=== PATIENT | female | born 1965 | race Two or more races ===

== ENCOUNTER 2021-05-19 04:55 | Inpatient (IN) | payer OTHER ==
[2021-05-15 10:33] VITALS: BMI 27.9
[~2021-05-19 04:55] MED LIST: PHENAZOPYRIDINE HCL 100 MG TABLET (FP) PO ONE
[2021-05-19] MEDS ORDERED: PHENAZOPYRIDINE HCL 100 MG TABLET (FP) ONE (06:23)
[2021-05-19] MEDS ORDERED: ceFAZolin SODIUM 1 GM VIAL ONE ×2 (06:24→16:06)
[2021-05-19] MEDS ORDERED: BUPIVACAINE LIPOSOME/PF (EXPAREL) 266 MG/20 ML VIAL ONE (07:27)
[2021-05-19] MEDS ORDERED: BUPIVACAINE HCL/PF 0.5% (5MG/ML) 10 ML VIAL ONE (07:27)
[2021-05-19] MEDS ORDERED: MIDAZOLAM HCL 2 MG/2 ML SINGLE DOSE VIAL ONE ×2 (07:28)
[2021-05-19] MEDS ORDERED: CEFAZOLIN 2 GM in DEXTROSE 5%-WATER 100 ML IVPB ONE (07:30)
[2021-05-19] MEDS ORDERED: PROPOFOL 20 ML ONE ×2 (08:15)
[2021-05-19] MEDS ORDERED: ROCURONIUM BROMIDE 50 MG/5 ML SYRINGE ONE (08:15)
[2021-05-19] MEDS ORDERED: SODIUM CHLORIDE 0.9% P/F 10 ML VIAL IJ ONE (08:26)
[2021-05-19] MEDS ORDERED: DEXAMETHASONE SOD PHOSPHATE 4 MG/1 ML VIAL ONE (08:28)
[2021-05-19] MEDS ORDERED: ceFAZolin SODIUM 1 GM VIAL IVPB ONE ×2 (08:30→16:12)
[2021-05-19] MEDS ORDERED: GLYCOPYRROLATE 0.2 MG/1 ML VIAL ONE ×2 (09:38→10:36)
[2021-05-19] MEDS ORDERED: KETOROLAC TROMETHAMINE 30 MG/1 ML VIAL ONE (10:22)
[2021-05-19] MEDS ORDERED: NEOSTIGMINE METHYLSULFATE 0.5 MG/ML - 10 ML MDV ONE (10:36)
[2021-05-19] MEDS ORDERED: PROMETHAZINE HCL 25 MG/1 ML VIAL IVPB PRN ×2 (12:10→18:11)
[2021-05-19] MEDS ORDERED: ONDANSETRON 4 MG/2 ML VIAL IVPUSH PRN ×3 (12:10→18:11)
[2021-05-19] MEDS ORDERED: DEXAMETHASONE SOD PHOSPHATE 4 MG/1 ML VIAL IVPUSH PRN (12:10)
[2021-05-19] MEDS ORDERED: HYDROmorphone *PCA* 10MG/50ML DISP.SYRIN PCA SCH (12:15)
[2021-05-19] MEDS ORDERED: DOCUSATE SODIUM 100 MG CAPSULE (FP) PO PRN (12:16)
[2021-05-19] MEDS ORDERED: BISACODYL 5 MG TABLET.DR (FP) PO PRN (12:16)
[2021-05-19] MEDS ORDERED: oxyCODONE HCL 5 MG TABLET PO PRN ×2 (12:16)
[2021-05-19] MEDS ORDERED: HYDROmorphone *PCA* 10MG/50ML DISP.SYRIN PCA ONE (14:00)
[2021-05-19] MEDS ORDERED: HYDROmorphone *PCA* 10MG/50ML DISP.SYRIN ONE (14:02)
[2021-05-19] MEDS: CEFAZOLIN 1 GM/D5W 1 GM/50 ML BAG IVPB SCH (17:08)
[2021-05-19] MEDS: LACTATED RINGERS SOLUTION 1,000 ML IV SCH ×2 (17:08→23:04)
[2021-05-19] MEDS: ACETAMINOPHEN 1000 MG/100 ML VIAL (NON FORMULARY) IVPB SCH ×2 (18:10→23:09)
[2021-05-19 20:02] LABS: HEMATOCRIT 35.1 % (32.4-45.2); HEMOGLOBIN 11.6 GM/dL (10.7-15.3); MCH 28.2 pg (25.7-33.7); MCHC 32.9 g/dl (32.0-36.0); MEAN CELL VOLUME 85.6 fl (80-96); MEAN PLT VOLUME 7.9 fl (7.5-11.1); PLATELET COUNT 229 10^3/uL (134-434); RBC 4.11 M/mm3 (3.60-5.2); RDW 13.3 % (11.6-15.6)
[2021-05-19] MEDS: IBUPROFEN 800 MG/8 ML IJ IVPB SCH (20:20)
[2021-05-19 20:31] LABS: BLOOD UREA NITROGEN 18.5 mg/dL (7-18); CALCIUM 8.7 mg/dL (8.5-10.1)
[2021-05-19 20:35] LABS: CREATININE 0.7 mg/dL (0.55-1.3)
[2021-05-20] MEDS: CEFAZOLIN 1 GM/D5W 1 GM/50 ML BAG IVPB SCH ×2 (01:03→09:28)
[2021-05-20] MEDS: IBUPROFEN 800 MG/8 ML IJ IVPB SCH ×3 (04:23→20:28)
[2021-05-20] MEDS: ACETAMINOPHEN 1000 MG/100 ML VIAL (NON FORMULARY) IVPB SCH ×3 (06:01→17:18)
[2021-05-20] MEDS ORDERED: oxyCODONE HCL 5 MG TABLET PO PRN ×4 (08:00→10:00)
[2021-05-20] MEDS: ENOXAPARIN NA (PORCINE) 40 MG/0.4 ML DISP.SYRIN SQ SCH (09:29)
[2021-05-20] MEDS: SIMETHICONE 80 MG TAB.CHEW (FP) PO PRN ×2 (09:29→18:19)
[2021-05-20] MEDS: clonazePAM 0.5 MG TABLET PO SCH (09:35)
[2021-05-20] MEDS ORDERED: PATIENT'S OWN MEDICATION (NON-FORMULARY) (Semaglutide [Rybelsus] 3 MG Tablet) PO SCH (10:00)
[2021-05-20 10:50] LABS: HEMATOCRIT 28.2 % (32.4-45.2); HEMOGLOBIN 9.6 GM/dL (10.7-15.3); MCH 29.2 pg (25.7-33.7); MEAN CELL VOLUME 85.6 fl (80-96); MEAN PLT VOLUME 8.3 fl (7.5-11.1); PLATELET COUNT 205 10^3/uL (134-434); RDW 13.5 % (11.6-15.6); WHITE BLOOD COUNT 10.3 K/mm3 (4.0-10.0)
[2021-05-20 11:09] LABS: CALCIUM 8.2 mg/dL (8.5-10.1)
[2021-05-20 11:10] LABS: BLOOD UREA NITROGEN 15.4 mg/dL (7-18)
[2021-05-20 11:13] LABS: CREATININE 0.9 mg/dL (0.55-1.3)
[2021-05-20] MEDS ORDERED: PCA PUMP KEY 1 EACH EACH ONE (11:57)
[2021-05-20] MEDS: LACTATED RINGERS SOLUTION 1,000 ML IV SCH (17:18)
[2021-05-21] MEDS: IBUPROFEN 800 MG/8 ML IJ IVPB SCH (05:34)
[2021-05-21] MEDS: clonazePAM 0.5 MG TABLET PO SCH (09:30)
[2021-05-21] MEDS: ENOXAPARIN NA (PORCINE) 40 MG/0.4 ML DISP.SYRIN SQ SCH (09:30)
[2021-05-21 10:28] VITALS: BP 113/70; PULSE 93; TEMP 99.1
== END 2021-05-21 10:55 | disposition home or self-care (01) | DRG 743 ==
LOC: JASUSAT 04:55 → J2C 12:29 → J3W 17:17
PROVIDERS: ADMIT Obstetrics & Gynecology; ATTEND Obstetrics & Gynecology
PROC: 0UT70ZZ Resection of Bilateral Fallopian Tubes, Open Approach (ICD-10-PCS; 2021-05-19)
PROC: 0UB10ZZ Excision of Left Ovary, Open Approach (ICD-10-PCS; 2021-05-19)
PROC: 0DNW0ZZ Release Peritoneum, Open Approach (ICD-10-PCS; 2021-05-19)
PROC: 0UT90ZZ Resection of Uterus, Open Approach (ICD-10-PCS; principal; 2021-05-19 07:30)
DX: D25.0 Submucous leiomyoma of uterus (principal); N83.202 Unspecified ovarian cyst, left side; N80.9 Endometriosis, unspecified; E11.9 Type 2 diabetes mellitus without complications; F41.9 Anxiety disorder, unspecified; K66.0 Peritoneal adhesions (postprocedural) (postinfection)
CPT/HCPCS: 36415; 74018-TC-FY; 80048; 82962; 85027; 86850; 86900; 86901; 88302-TC; 88305-TC; 88307-TC; 94010; 94760; J0131

== ENCOUNTER 2021-07-13 08:40 | Emergency (ER) | payer OTHER ==
[2021-07-13 08:44] VITALS: BMI 27.9
[2021-07-13] MEDS ORDERED: SODIUM CHLORIDE 1,000 ML IV STA (09:52)
[2021-07-13] MEDS ORDERED: ACETAMINOPHEN 500 MG TABLET (FP) PO ONE (09:53)
[2021-07-13] MEDS ORDERED: METOCLOPRAMIDE HCL INJECTION 10 MG/2 ML VIAL IVPUSH ONE (10:04)
[2021-07-13] MEDS ORDERED: METOCLOPRAMIDE HCL INJECTION 10 MG/2 ML VIAL ONE (10:39)
[2021-07-13] MEDS ORDERED: ACETAMINOPHEN 500 MG TABLET (FP) ONE (10:46)
[2021-07-13 10:47] LABS: BASO % 0.9 % (0-2.0); EOS % 1.1 % (0-4.5); HEMATOCRIT 40.6 % (32.4-45.2); HEMOGLOBIN 13.5 GM/dL (10.7-15.3); LYMPH % 21.7 % (8-40); MCH 28.2 pg (25.7-33.7); MCHC 33.3 g/dl (32.0-36.0); MEAN CELL VOLUME 84.8 fl (80-96); MEAN PLT VOLUME 8.1 fl (7.5-11.1); MONO % 7.4 % (3.8-10.2); NEUT % 68.9 % (42.8-82.8); PLATELET COUNT 247 10^3/uL (134-434); RBC 4.79 M/mm3 (3.60-5.2); RDW 14.6 % (11.6-15.6); WHITE BLOOD COUNT 8.5 K/mm3 (4.0-10.0)
[2021-07-13 11:19] LABS: CHLORIDE 105 mmol/L (98-107); SODIUM 140 mmol/L (136-145)
[2021-07-13 11:23] LABS: ALBUMIN 3.4 g/dl (3.4-5.0); ANION GAP 5 MMOL/L (8-16); BLOOD UREA NITROGEN 11.6 mg/dL (7-18); CALCIUM 9.4 mg/dL (8.5-10.1); CO2 30 mmol/L (21-32); GLUCOSE,RANDOM 152 mg/dL (74-106); MAGNESIUM 1.9 mg/dL (1.8-2.4)
[2021-07-13 11:26] LABS: CREATININE 0.7 mg/dL (0.55-1.3)
[2021-07-13 11:27] LABS: BILIRUBIN,TOTAL 0.6 mg/dL (0.2-1); SGOT/AST 114 U/L (15-37); SGPT/ALT 415 U/L (13-61); TOT PROT 7.5 g/dl (6.4-8.2)
[2021-07-13 11:28] LABS: ALK PHOS 249 U/L (45-117)
[2021-07-13 15:51] VITALS: BP 110/65; PULSE 72; TEMP 98
== END 2021-07-13 15:20 | disposition left against medical advice (07) ==
LOC: JER 08:40
PROC: 3E033NZ Introduction of Analgesics, Hypnotics, Sedatives into Peripheral Vein, Percutaneous Approach (ICD-10-PCS; principal; 2021-07-13)
PROC: 3E033GC Introduction of Other Therapeutic Substance into Peripheral Vein, Percutaneous Approach (ICD-10-PCS; 2021-07-13)
PROC: 3E0337Z Introduction of Electrolytic and Water Balance Substance into Peripheral Vein, Percutaneous Approach (ICD-10-PCS; 2021-07-13)
DX: R42 Dizziness and giddiness (principal); M79.651 Pain in right thigh; R74.01 Elevation of levels of liver transaminase levels; K80.20 Calculus of gallbladder without cholecystitis without obstruction
CPT/HCPCS: 36415; 71046-TC-FY; 73523-TC-FY; 73552-TC-RT-FY; 76705-TC; 80053; 82550; 83735; 84484; 85025; 85379; 86704; 86706; 86803; 87340; 87517; 93005; 93010; 99285-25; C9803; U0003; U0005